=== PATIENT | female | born 1945 ===

== ENCOUNTER → 2017-07-19 | Emergency (ER) | payer OTHER ==
[~2017-07-19] VITALS: Ht 170.2 cm; Wt 72.6 kg
[~2017-07-19] MED LIST: FORTAMET500 MG; SYNTHROID50 MCG; VITAMIN C500 MG
== END | disposition home or self-care (01) ==
LOC: ER 20:43 → CPU-OBS 20:51 → ER 20:51
DX: I10 Essential (primary) hypertension (principal); M94.0 Chondrocostal junction syndrome [Tietze]; R07.89 Other chest pain

== ENCOUNTER → 2018-07-03 | Emergency (ER) | payer OTHER ==
[~2018-07-03] VITALS: Ht 170.2 cm; Wt 73.5 kg
[~2018-07-03] MED LIST changes: +CELEBREX100 MG PO; +METOPROLOL SUCC25 MG; +SKELAXIN800 MG PO
== END | disposition home or self-care (01) ==
LOC: ER 16:23
DX: M54.5 Low back pain (principal); M54.2 Cervicalgia